=== PATIENT | female | born 2000 | race Caucasian/White ===

== ENCOUNTER 2021-11-18 14:57 | Emergency (ER) | payer OTHER ==
[~2021-11-18] VITALS: Ht 165.1 cm; Wt 65.9 kg
[2021-11-18] MEDS ORDERED: ADDERALL XR 10M10 MG PO (15:03)
[2021-11-18] MEDS ORDERED: BIRTH CONTROL (15:03)
[2021-11-18 15:04] VITALS: BP 124/59; TEMP 97.6
[2021-11-18 16:16] VITALS: PULSE 70
== END 2021-11-18 16:20 | disposition home or self-care (01) ==
LOC: COL.ER 14:57
DX: S06.0X0A Concussion without loss of consciousness, initial encounter (principal); S00.83XA Contusion of other part of head, initial encounter; W22.01XA Walked into wall, initial encounter; Y93.02 Activity, running